=== PATIENT | male | born 1960 | race African-American/Black ===

== ENCOUNTER 2019-12-30 21:59 | Emergency (ER) | payer OTHER ==
[2019-12-31] MEDS ORDERED: ACETAMINOPHEN 325 MG TABLET PO ONE (00:09)
--- NOTE | 2019-12-31 00:47 | ER Document Report ---
Entered by PAULINA STRICKLAND SCRIBE 12/30/19 2344 Acting as scribe for:PETER JALLOH DO ED General - General Chief Complaint: Fever Stated Complaint: FEVER/GENERAL WEAKNESS Time Seen by Provider: 12/30/19 23:30 Mode of Arrival: Ambulatory Information source: Patient Notes: This 59 year old male patient with no significant past medical history presents to the ED today with complaints of generalized weakness and fever since yesterday morning. He reports associated body aches and cough. He thinks that his [id number] tested positive for Covid-19 x1 week ago. Denies any chest pain. - Related Data Allergies/Adverse Reactions: No Known Allergies Allergy (Unverified 12/31/19 01:56) Past Medical History - General Information source: Patient - Social History Smoking Status: Unknown if Ever Smoked Cigarette use (# per day): No Chew tobacco use (# tins/day): No Smoking Education Provided: No Lives with: Spouse/Significant other Family History: Reviewed & Not Pertinent Patient has suicidal ideation: No Patient has homicidal ideation: No Review of Systems - Review of Systems Constitutional: See HPI, Fever, Weakness EENT: No symptoms reported Cardiovascular: See HPI. denies: Chest pain Respiratory: See HPI, Cough Gastrointestinal: No symptoms reported Genitourinary: No symptoms reported Male Genitourinary: No symptoms reported Musculoskeletal: See HPI, Muscle pain Skin: No symptoms reported Hematologic/Lymphatic: No symptoms reported Neurological/Psychological: No symptoms reported -: Yes All other systems reviewed and negative Physical Exam - Vital signs Vitals: Temp Pulse Resp BP Pulse Ox 101.4 F H 102 H 20 134/75 H 95 12/30/19 22:21 12/30/19 22:21 12/30/19 22:21 12/30/19 22:21 12/30/19 22:21 - General General appearance: Alert In distress: None - HEENT Head: Normocephalic, Atraumatic Eyes: Normal Pupils: PERRL - Respiratory Respiratory status: No respiratory distress Chest status: Nontender Breath sounds: Normal Chest palpation: Normal - Cardiovascular Rhythm: Regular Heart sounds: Normal auscultation Murmur: No Friction rub: No Gallop: None auscultated - Abdominal Inspection: Normal Distension: No distension Bowel sounds: Normal Tenderness: Nontender - Abdomen soft Organomegaly: No organomegaly - Back Back: Normal, Nontender - Extremities General upper extremity: Normal inspection General lower extremity: Normal inspection. No: Edema - Neurological Neuro grossly intact: Yes Orientation: AAOx4 [place] Coma Scale Eye Opening: Spontaneous [place] Coma Scale Verbal: Oriented Crystal Coma Scale Motor: Obeys Commands Crystal Coma Scale Total: 15 - Psychological Associated symptoms: Normal affect, Normal mood - Skin Skin Temperature: Warm Skin Moisture: Dry Skin Color: Normal Course - Re-evaluation Re-evalutation: 12/31/19 01:57 MDM 59 year old otherwise healthy male is sick for 1 day. Brother in law who he has been around is reportedly covid +. He has noted fever and generalized weakness today. No sob. - Vital Signs Vital signs: Temp Pulse Resp BP Pulse Ox 99.7 F 102 H 40 H 124/76 96 12/31/19 00:05 12/30/19 22:21 12/31/19 02:01 12/31/19 02:00 12/31/19 02:01 Discharge - Discharge Clinical Impression: Acute febrile illness Condition: Stable Disposition: HOME, SELF-CARE Instructions: Acetaminophen, Family Physicians / Practices, Fever (OM), Viral Syndrome (OM) Additional Instructions: Rest, plenty of fluids. Take the antibiotics as directed. Return here for any problems or any concerns including but not limited to chest pain or shortness of breath. Tylenol or ibuprofen for fever and aches. Prescriptions: Azithromycin [Zithromax 250 mg Tablet] 500 mg PO DAILY #4 tablet Azithromycin [Zithromax Tri-Ji] 500 mg PO DAILY #4 tablet I personally performed the services described in the documentation, reviewed and edited the documentation which was dictated to the scribe in my presence, and it accurately records my words and actions.
--- NOTE | 2019-12-31 01:38 | RADIOLOGY REPORT (SQ) ---
EXAM DESCRIPTION: X-ray, AP portable view of the chest CLINICAL HISTORY: 59 years Male, fever COMPARISON: None. FINDINGS: Lungs: Lung volumes are low and there is parenchymal opacification in the perihilar and lower lobes bilaterally. No pneumothorax. No obvious pleural effusion. Mediastinum: Heart size is enlarged. The mediastinum is widened. Bones: Osseous structures are normal. IMPRESSION: Low lung volumes with perihilar and lower lobe opacification. This may represent atelectasis or pneumonia.
[2019-12-31] MEDS ORDERED: AZITHROMYCIN 250 MG TABLET PO ONE (02:05)
[2019-12-31 02:17] VITALS: BP 124/76
== END 2019-12-31 03:03 | disposition home or self-care (01) ==
LOC: ER 21:59 → EDBD 21:59 → ER 12-31 03:03
DX: U07.1 COVID-19 (principal); R50.9 Fever, unspecified; R53.1 Weakness; R05 Cough; M79.10 Myalgia, unspecified site
CPT/HCPCS: 99283; 87635; 71045; C9803